=== PATIENT | female | born 1995 | race African-American/Black ===

== ENCOUNTER 2025-03-09 00:25 | Emergency (ER) | payer SELFPAY ==
[~2025-03-09] VITALS: Ht 170.2 cm; Wt 70.0 kg
[2025-03-09 00:32] VITALS: O2SAT 100
[2025-03-09 01:12] VITALS: TEMP 36.4
[2025-03-09] MEDS: ONDANSETRON HCL 4MG/2ML INJ IV STA (01:37)
[2025-03-09] MEDS: SODIUM CHLORIDE 0.9% 1,000 ML IV ONE (01:39)
[2025-03-09 02:20] LABS: BASOPHILS % 0.2 % (0.0-2.0); EOSINOPHILS % 0.1 % (0.0-5.0); HEMATOCRIT. 39.9 % (36.0-48.0); HEMOGLOBIN. 12.5 g/dL (12.0-16.0); MEAN CORPUSCULAR HGB CONC 31.3 g/dL (31.0-37.0); MEAN CORPUSCULAR VOLUME 89.5 fL (81.0-99.0); MEAN PLATELET VOLUME 10.8 fl (7.4-10.4); MONOCYTES % 4.7 % (2.0-8.0); PLATELET 146 x1000/uL (130-400); RED BLOOD CELL COUNT 4.46 mill/uL (4.2-5.4); RED CELL DISTRIBUTION WIDTH 15.9 % (11.6-14.6); WHITE BLOOD COUNT 11.2 x1000/uL (4.5-11.0)
[2025-03-09 02:28] LABS: CHLORIDE 109 mEq/L (98-107); POTASSIUM 4.2 mEq/L (3.5-5.1); SODIUM 142 mEq/L (136-145)
[2025-03-09 02:32] LABS: CARBON DIOXIDE 22 mEq/L (21-32)
[2025-03-09 02:33] LABS: CALCIUM 8.4 mg/dL (8.7-10.4)
[2025-03-09 02:37] LABS: GLUCOSE 92 mg/dL (70-105)
[2025-03-09 02:38] LABS: UREA NITROGEN BLOOD < 5 mg/dL (9-23)
[2025-03-09 02:42] LABS: *AMPHETAMINES SCREEN URINE NEGATIVE (NEGATIVE); *BARBITURATES SCREEN URINE NEGATIVE (NEGATIVE); *BENZODIAZEPINES SCREEN URINE NEGATIVE (NEGATIVE); *COCAINE SCREEN URINE PRESUMPTIVE POSITIVE (NEGATIVE); CANNABINOID URINE SCREEN NEGATIVE (NEGATIVE); ECSTASY MDMA SCREEN URINE NEGATIVE (NEGATIVE); METHADONE URINE SCREEN NEGATIVE (NEGATIVE); OPIATES URINE SCREEN NEGATIVE (NEGATIVE); PHENCYCLIDINE URINE SCREEN NEGATIVE (NEGATIVE)
[2025-03-09 02:47] LABS: ETHANOL BLOOD 289 mg/dL (<10)
[2025-03-09 02:54] LABS: HCG SCREEN NEGATIVE
[2025-03-09 05:09] VITALS: BP 105/68; PULSE 65; RESP 12; O2SAT 100
== END 2025-03-09 05:27 | disposition home or self-care (01) ==
LOC: ER 00:25
DX: T51.0X1A Toxic effect of ethanol, accidental (unintentional), initial encounter (principal); F10.129 Alcohol abuse with intoxication, unspecified; R51.9 Headache, unspecified; Z79.899 Other long term (current) drug therapy; X58.XXXA Exposure to other specified factors, initial encounter; Y90.9 Presence of alcohol in blood, level not specified
CPT/HCPCS: 80305; 80048; 80320; 84703; 85025; 36415; 70450; 93005; 96361; 96374; 99291; J2405; J7030; Z7610 ×2; 99285; A4606; G0480